=== PATIENT | female | born 1955 | race Hispanic/Latino ===

== ENCOUNTER 2022-12-10 16:42 | Emergency (ER) | payer MEDICARE ==
[~2022-12-10] VITALS: Ht 160 cm; Wt 55.3 kg
[2022-12-10 16:45] VITALS: O2SAT 100
[2022-12-10] MEDS ORDERED: KETOROLAC TROMETHAMINE 30 MG/ML VIAL IM STA (16:57)
[2022-12-10] MEDS ORDERED: DEXAMETHASONE SOD PHOS 10 MG/1 ML VIAL ONE (16:58)
[2022-12-10] MEDS ORDERED: DEXAMETHASONE SOD PHOS 10 MG/1 ML VIAL IM ONE (17:00)
[2022-12-10] MEDS ORDERED: METHOCARBAMOL750 MG PO (18:50)
[2022-12-10] MEDS ORDERED: ANAPROX DS550 MG PO (18:50)
[2022-12-10] MEDS ORDERED: ACETAMINOPHEN 325 MG TAB PO ONE (19:00)
== END 2022-12-10 19:04 | disposition home or self-care (01) ==
LOC: ER 16:52
DX: M54.12 Radiculopathy, cervical region (principal); M79.602 Pain in left arm; R51.9 Headache, unspecified; K76.0 Fatty (change of) liver, not elsewhere classified
CPT/HCPCS: 72125; 99283; J1100; J1885